=== PATIENT | female | born 1950 | race Caucasian/White ===

== ENCOUNTER 2017-04-20 16:12 | Emergency (ER) | payer MEDICARE, OTHER ==
[~2017-04-20] VITALS: Ht 162.6 cm; Wt 52.6 kg
[2017-04-20] MEDS ORDERED: HYDROcodone-ACET 10/325MG TAB PO ONE (19:45)
[2017-04-20] MEDS ORDERED: HYDROmorphone HCL 2 MG/ML VL IV ONE (21:00)
[2017-04-20] MEDS ORDERED: ONDANSETRON HCL 4 MG/2 ML VIAL IV ONE (21:00)
[2017-04-20 22:20] VITALS: BP 150/94
== END 2017-04-21 01:08 | disposition home or self-care (01) ==
LOC: ER 16:19
DX: S42.201A Unspecified fracture of upper end of right humerus, initial encounter for closed fracture (principal); W01.0XXA Fall on same level from slipping, tripping and stumbling without subsequent striking against object, initial encounter; Y93.89 Activity, other specified; Y99.8 Other external cause status; Y92.89 Other specified places as the place of occurrence of the external cause
CPT/HCPCS: 29505; 73030; 73130; 73562; 73700; 96374; 96375; 99284; J1170; J2405